=== PATIENT | female | born 1940 | race Caucasian/White ===

== ENCOUNTER 2021-12-30 10:32 | Emergency (ER) | payer MEDICARE, OTHER, SELFPAY ==
[2021-12-30 10:51] VITALS: BP 172/81; PULSE 71; RESP 16; TEMP 37.4; O2SAT 96; BMI 21.9
--- NOTE | 2021-12-30 11:19 | ED_ITS ---
HPI - General Adult General Chief complaint: Dental/Oral Stated complaint: Swelling/pain in left jaw/neck Time Seen by Provider: 12/30/21 11:11 History of Present Illness HPI narrative: Patient here with complains of left mandibular angle swelling. Ongoing since last Friday. No known injury. Patient has history of Sjogren's. Never had problems with her salivary glands before. She does have history kidney disease. Is being followed by her providers in [place]. Patient denies any trouble swallowing or breathing. Complains of pain and swelling only. Denies any dental pain. Related Data Home Medications Medication Instructions Recorded Confirmed dorzolamide EYE-BOTH 12/30/21 escitalopram oxalate 5 mg tablet 5 mg PO DAILY 12/30/21 12/30/21 (Lexapro) lamotrigine PO 12/30/21 12/30/21 mycophenolate mofetil 250 mg 500 mg PO BID 12/30/21 12/30/21 capsule Previous Rx's Medication Instructions Recorded cephalexin 500 mg capsule 500 mg PO QID #28 caps 12/30/21 Allergies Allergy/AdvReac Type Severity Reaction Status Date / Time meperidine [From Demerol] Allergy Mild Syncope Verified 12/30/21 10:16 Review of Systems Review of Systems Narrative: GENERAL: Denies chills, fatigue, malaise, fever, sweats. HEENT: Denies sinus pain, ear pain, sore throat, complains of jaw pain RESPIRATORY: Denies dyspnea, cough CARDIOVASCULAR: Denies chest pain, palpitations GASTROINTESTINAL: Denies nausea, vomiting, abdominal pain : Denies dysuria, frequency, hematuria MUSCULOSKELETAL: denies muscle or bony pain SKIN: Denies rash, skin lesions NEUROLOGIC: Denies weakness, numbness ROS Unobtainable: All systems reviewed & are unremarkable except as noted in HPI and below Patient History Social History Smoking Status: Former smoker Smoking Status: Former smoker Exam Narrative Exam Narrative: GENERAL: in no distress, not toxic not dyspneic HEAD: Normocephalic. EYES: Pupils equal round No scleral icterus. ENT: Mucous membranes moist. No intraoral swelling edema, no tongue elevation, no drooling. No left mucosal mass palpable. No fluctuance. No dental tenderness. On the external surface/skin at the angle of the left mandible there is tenderness and edema no fluctuance. NECK: Trachea midline. No stridor. No midline shift. NEURO: AOx4. SKIN: Warm and dry PSYCH: Not anxious, is cooperative Initial Vital Signs Initial Vital Signs: Vital Signs Temperature 99.3 F 12/30/21 10:51 Pulse Rate 71 12/30/21 10:51 Respiratory Rate 16 12/30/21 10:51 Blood Pressure 172/81 H 12/30/21 10:51 Pulse Oximetry 96 12/30/21 10:51 Oxygen Delivery Method 12/30/21 10:51 Course Course Course Narrative: No new issues during course of stay Orders Ordered: Discontinued Medications Cephalexin HCl (Cephalexin 250 Mg Capsule) 500 mg PO NOW ONE Stop: 12/30/21 15:03 Last Admin: 12/30/21 15:11 Dose: 500 mg Documented By: AT Sodium Chloride (Normal Saline 0.9%) 1,000 mls @ 1,000 mls/hr IV BOLUS ONE Stop: 12/30/21 13:51 Last Infusion: 12/30/21 14:58 Dose: 0 mls/hr Documented By: Admin: 12/30/21 13:25 Dose: 1,000 mls/hr Documented By: AT Reevaluation(s) Reevaluation #1: Reviewed renal function with patient and . They do agree for CT scan imaging with IV contrast. Risks and benefits reviewed with them contrast injuring the kidneys. However at this time her kidney functions according to patient is better than in the past. We will be given IV hydration. They understand best imaging is with IV contrast with CT scan. Ultrasound not optimal to find the problem. MRI not available for the study. Time: 12:53 Reevaluation #2: Reviewed results with patient. They understand diagnosis and treatment plan. They also understand need follow-up for other findings on CT scan including thyroid and small lesion in the left parotid area Time: 15:04 Vital Signs Vital signs: Vital Signs - 8 hr 12/30/21 10:51 12/30/21 14:57 Temperature 99.3 F Pulse Rate 71 69 Respiratory Rate 16 18 Blood Pressure 172/81 H 169/74 H Pulse Oximetry 96 99 Oxygen Delivery Method Room Air Room Air Medical Decision Making Differential Diagnosis Differential Diagnosis: Parotitis/sialadenitis/abscess Lab Data Result diagrams: 12/30/21 11:43 12/30/21 11:43 Labs: Lab Results 12/30/21 12/30/21 Range/Units 11:43 11:43 WBC 12.1 H (4.5-11.0) X10^3/uL RBC 3.93 L (4.0-5.2) X10^6/uL Hgb 12.1 (12.0-16.0) g/dL Hct 35.9 L (36-46) % MCV 91.1 (80-100) fL MCH 30.7 (26-34) PG MCHC 33.7 (30-36) % RDW 14.3 (11.6-14.8) % Plt Count 228 (150-400) X10^3/uL Neut % (Auto) 88.3 H (50-75) % Lymph % (Auto) 3.4 L (25-40) % [place] % (Auto) 7.4 (3-14) % Eos % (Auto) 0.5 L (2-4) % Baso % (Auto) 0.4 (0-2) % Neut # (Auto) 23994 H (7431-9174) /uL Lymph # (Auto) 400 L (4949-2221) /uL [place] # (Auto) 900 (0-900) /uL Eos # (Auto) 100 (0-450) /uL Baso # (Auto) 0 (0-100) /uL Sodium 137 (137-145) mmol/L Potassium 3.7 (3.4-5.1) mmol/L Chloride 106 (98-107) mmol/L Carbon Dioxide 21 L (22-32) mmol/L BUN 17 (7-17) mg/dL Creatinine 0.98 (0.52-1.04) mg/dL Estimated GFR 57 L (>60) mL/min BUN/Creatinine Ratio 17.3 (6-22) Glucose 105 (80-110) mg/dL Calcium 9.3 (8.4-10.2) mg/dL Total Bilirubin 0.6 (0.2-1.3) mg/dL AST 33 (14-36) IU/L ALT 21 (<35) IU/L Alkaline Phosphatase 74 (38-126) U/L Total Protein 8.9 H (6.3-8.2) g/dL Albumin 4.4 (3.5-5.0) g/dL Globulin 4.5 H (1.7-4.1) g/dL Albumin/Globulin Ratio 1.0 (1.0-2.8) Amylase 89 (30-110) U/L Imaging Data CT soft tissue neck: Radiologist's Impression: [address] [address] [address] Scan Report Signed Patient: Ashley Hopper MR#: [id number] : 1940 Acct:[id number] Age/Sex: 81 / F Date of Service: 12/30/21 Loc: ED Accession Number: [id number] ?? Procedure: CT soft tissue neck w con Ordering Provider: Marco Antonio Espinoza MD PROCEDURE:? CT SOFT TISSUE NECK W CON ? INDICATIONS:? Left jaw swelling ? TECHNIQUE:? After the administration of intravenous contrast, 3.0 mm axial sections acquired from the sella to the aortic arch.? Additional oblique axial 3.0 mm sections acquired through the pharynx.? 3 mm thick coronal and sagittal reformats were generated.? For radiation dose reduction, the following was used:? automated exposure control.? ? COMPARISON:? None. ? FINDINGS:? Image quality:? Excellent.? ? Lymph nodes:? No enlarged lymph nodes seen throughout the neck.? ? Vessels:? Visualized vasculature appears patent.? ? Neck spaces:? The oropharynx, nasopharynx, and pharynx demonstrate no mucosal lesions.? The vocal cords, false vocal cords, pyriform sinuses, epiglottis, vallecula, and tongue base all appear normal.? Extramucosal spaces appear unremarkable.? ? Glands:? Left parotid gland is swollen and heterogenous, and contains a 1 cm internal cystic structure.? Adjacent deep cervical adenopathy noted as well measuring up to 1 cm.? Left submandibular gland is also slightly enlarged and heterogenous. ? Thyroid also contains several low-density nodules each measuring up to 1 cm.? Consider follow-up nonemergent ultrasound ? Miscellaneous:? Visualized brain and orbits appear normal.? Lung apices appear clear.? Superficial soft tissues appear normal. ? Bones:? No suspicious bony lesions.? Visualized sinuses and mastoids appear unremarkable. ? ? ? IMPRESSION:? ? 1. Probable left parotitis with possible left submandibular sialoadenitis.? There is a low-density 1 cm intraparotid lesion as well, which can be further imaged after resolution of acute inflammatory/infectious process. ? Approved by: Suresh Melendrez M.D. on 12/30/2021 at 13:42? MDM Narrative Medical decision making narrative: Appropriate for discharge home. Exam and laboratory studies are otherwise reassuring. Patient is from [facility], patient state they will follow-up with ENT when they return home. They will 1st see their family doctor. Not toxic at discharge. Airway intact. Return precautions reviewed with him. Antibiotics started here. Discharge Plan Departure Patient Disposition: Home Clinical Impression: Acute parotitis Instructions: DI for Parotitis-Adult Activity Restrictions/Additional Instructions: Continue prescribed antibiotics Keflex. Be sure to use plenty of hard candy le mon drops. Not cough drops. This will promote salivation. Please see family doctor when you return home and he will need a referral to Otolaryngology services. Also you will need to have repeat imaging of here parotid gland area and thyroid for findings on CT scan today. Return if worsening questions or concerns. Prescriptions: New cephalexin 500 mg capsule 500 mg PO QID Qty: 28 0RF No Action mycophenolate mofetil 250 mg capsule 500 mg PO BID lamotrigine PO escitalopram oxalate [Lexapro] 5 mg tablet 5 mg PO DAILY dorzolamide EYE-BOTH Visit Report Forms: Patient Portal/API
[2021-12-30 12:00] LABS: Add Manual Diff / Slide Review NO; Basophils Absolute Auto 0 /uL (0-100); Basophils Percent Auto 0.4 % (0-2); Eosinophils Absolute Auto 100 /uL (0-450); Eosinophils Percent Auto 0.5 % (2-4); Hematocrit 35.9 % (36-46); Hemoglobin 12.1 g/dL (12.0-16.0); Lymphocytes Absolute Auto 400 /uL (1100-4500); Lymphocytes Percent Auto 3.4 % (25-40); Mean Corpuscular HGB Conc 33.7 % (30-36); Mean Corpuscular Hemoglobin 30.7 PG (26-34); Mean Corpuscular Volume 91.1 fL (80-100); Monocytes Absolute Auto 900 /uL (0-900); Monocytes Percent Auto 7.4 % (3-14); Neutrophils Absolute Auto 10700 /uL (1500-7000); Neutrophils Percent Auto 88.3 % (50-75); Platelet Count 228 X10^3/uL (150-400); Red Blood Cell Count 3.93 X10^6/uL (4.0-5.2); Red Cell Distribution Width 14.3 % (11.6-14.8); White Blood Cell Count 12.1 X10^3/uL (4.5-11.0)
[2021-12-30 12:02] LABS: Alanine Aminotransferase 21 IU/L (<35); Albumin 4.4 g/dL (3.5-5.0); Alkaline Phosphatase 74 U/L (38-126); Amylase 89 U/L (30-110); Aspartate Aminotransferase 33 IU/L (14-36); BUN Creatinine Ratio 17.3 (6-22); Bilirubin Total 0.6 mg/dL (0.2-1.3); Blood Urea Nitrogen 17 mg/dL (7-17); Calcium 9.3 mg/dL (8.4-10.2); Carbon Dioxide 21 mmol/L (22-32); Chloride 106 mmol/L (98-107); Estimated Glomerular Filt Rate 57 mL/min (>60); Globulin 4.5 g/dL (1.7-4.1); Glucose 105 mg/dL (80-110); HEMOLYSIS < 15 (0-50); Potassium 3.7 mmol/L (3.4-5.1); Sodium 137 mmol/L (137-145); Total Protein 8.9 g/dL (6.3-8.2)
--- NOTE | 2021-12-30 12:52 | DI.CT.S_ITS ---
PROCEDURE: CT SOFT TISSUE NECK W CON INDICATIONS: Left jaw swelling TECHNIQUE: After the administration of intravenous contrast, 3.0 mm axial sections acquired from the sella to the aortic arch. Additional oblique axial 3.0 mm sections acquired through the pharynx. 3 mm thick coronal and sagittal reformats were generated. For radiation dose reduction, the following was used: automated exposure control. COMPARISON: None. FINDINGS: Image quality: Excellent. Lymph nodes: No enlarged lymph nodes seen throughout the neck. Vessels: Visualized vasculature appears patent. Neck spaces: The oropharynx, nasopharynx, and pharynx demonstrate no mucosal lesions. The vocal cords, false vocal cords, pyriform sinuses, epiglottis, vallecula, and tongue base all appear normal. Extramucosal spaces appear unremarkable. Glands: Left parotid gland is swollen and heterogenous, and contains a 1 cm internal cystic structure. Adjacent deep cervical adenopathy noted as well measuring up to 1 cm. Left submandibular gland is also slightly enlarged and heterogenous. Thyroid also contains several low-density nodules each measuring up to 1 cm. Consider follow-up nonemergent ultrasound Miscellaneous: Visualized brain and orbits appear normal. Lung apices appear clear. Superficial soft tissues appear normal. Bones: No suspicious bony lesions. Visualized sinuses and mastoids appear unremarkable. IMPRESSION: 1. Probable left parotitis with possible left submandibular sialoadenitis. There is a low-density 1 cm intraparotid lesion as well, which can be further imaged after resolution of acute inflammatory/infectious process. Approved by: Suresh Melendrez M.D. on 12/30/2021 at 13:42
[2021-12-30] MEDS: SODIUM CHLORIDE 0.9% 1,000 ML 1000 ML IV (13:25)
[2021-12-30 14:57] VITALS: BP 169/74; PULSE 69; RESP 18; O2SAT 99
[2021-12-30] MEDS: cephALEXin 250 MG CAPSULE 500 MG PO (15:11)
== END 2021-12-30 15:25 | disposition home or self-care (01) ==
PROVIDERS: Emergency Provider Emergency Medicine
DX: K11.21 Acute sialoadenitis (principal)
CPT/HCPCS: 36415; 70491; 80053; 82150; 85025; 96360; 96361; 99284; Q9967